=== PATIENT | male | born 1985 | race Caucasian/White ===

== ENCOUNTER 2016-10-06 22:31 | Emergency (ER) | payer BC, OTHER ==
[2016-10-06 22:57] VITALS: O2SAT 96
[2016-10-06] MEDS ORDERED: XYLOCAINE HCl Viscous MM PRN (23:12)
[2016-10-06] MEDS ORDERED: AMOXIL 500 MG PO ONE (23:12)
[2016-10-06] MEDS ORDERED: Marcaine 0.5%/Epinephrine 10 ML ONE (23:13)
[2016-10-06] MEDS ORDERED: XYLOCAINE HCl Viscous ONE (23:13)
[2016-10-06] MEDS ORDERED: Marcaine 0.5%/Epinephrine 10 ML IJ ONE (23:13)
[2016-10-06] MEDS ORDERED: AMOXIL 500 MG ONE (23:16)
--- NOTE | 2016-10-06 23:20 | ERPHSYRPT ---
- History of Present Illness Time Seen by Provider: 10/06/16 23:06 Source: patient Patient Subjective Stated Complaint: states that he was sitting at his computer tonight and began to have sharp shooting pain in his mouth - pain radiates to the latter day - states that he will see his dentist tomorrow Triage Nursing Assessment: ambulatory to [facility] area - steady gait - moves all extremities with equal strength. alert/oriented - grimmacing affect. skin pwd - no rash/injury. resps easy - non-labored. dental caries Physician History: CC: left upper toothache tonite hx: 31 y/o healthy patient with left upper toothache tonite that is severe. No other complaints. No fever. Pain too bad. He has a dentist in and hopes to be seen there tomorrow. Severity: severe ENT Location: dental Allergies/Adverse Reactions: No Known Drug Allergies Allergy (Unverified 10/06/16 23:08) Hx Tetanus, Diphtheria Vaccination/Date Given: Yes Hx Influenza Vaccination/Date Given: No Hx Pneumococcal Vaccination/Date Given: No Immunizations Up to Date: Yes - Review of Systems Constitutional: No Fever, No Chills Eyes: No Vision Changes, No Double Vision Ears, Nose, & Throat: Mouth Pain, No Throat Pain Respiratory: No Dyspnea Skin: No Rash - Past Medical History Pertinent Past Medical History: No - Past Surgical History Past Surgical History: No - Social History Smoking Status: Never smoker Exposure to second hand smoke: No Drug Use: none Patient Lives Alone: No ([employer] at [employer]) - Nursing Vital Signs Nursing Vital Signs: Initial Vital Signs Temperature 97.6 F Temperature Source Oral Pulse Rate 60 Respiratory Rate 18 Blood Pressure [Right Arm] 132/73 Pain Intensity 9 - Physical Exam General Appearance: alert Eye Exam: bilateral eye: PERRL, EOMI Nasal Exam: normal inspection Throat Exam: pharynx normal Neck Exam: non-tender, supple Cardiovascular/Respiratory Exam: normal breath sounds, regular rate/rhythm Neurologic Exam: alert, oriented x 3, cooperative Skin Exam: warm, dry, other (no facial cellulitis), No rash SpO2 Interpretation: normal SpO2: 96 Oxygen Delivery: Room Air Comments: tender left upper 3rd molar with cracked tooth. No trismus. No facial cellulitis. - Course Nursing assessment & vital signs reviewed: Yes Ordered Tests: Medication Summary Generic Name Dose Route Start Last Admin Trade Name Jeancarlos PRN Reason Stop Dose Admin Lidocaine HCl 2 ml 10/06/16 23:12 10/06/16 23:51 Xylocaine Hcl Viscous * MM 11/05/16 23:11 2 ml PRN PRN Administration gum injection Discontinued Medications Generic Name Dose Route Start Last Admin Trade Name Jeancarlos PRN Reason Stop Dose Admin Amoxicillin 500 mg 10/06/16 23:12 10/06/16 23:51 Amoxil 500 Mg PO 10/06/16 23:13 500 mg STAT ONE Administration Amoxicillin Confirm 10/06/16 23:16 Amoxil 500 Mg Administered 10/06/16 23:17 Dose 500 mg .ROUTE .STK-MED ONE Bupivacaine HCl/Epinephrine Bitart 5 ml 10/06/16 23:13 10/06/16 23:51 Marcaine 0.5%/Epinephrine 10 Ml IJ 10/06/16 23:14 5 ml STAT ONE Administration Bupivacaine HCl/Epinephrine Bitart Confirm 10/06/16 23:13 Marcaine 0.5%/Epinephrine 10 Ml Administered 10/06/16 23:14 Dose 10 ml .ROUTE .STK-MED ONE - Progress Progress Note: 10/06/16 23:19 Pt chose dental block injection trial. 10/06/16 23:23 2.5ml maracine 0.5% with epi used for left dental block. Pt tolerated well. 10/06/16 23:51 Pain significantly improved but not gone. Will give norco for home. Rx amoxil. Advised no driving or operating machinery while taking norco. Advised close dental followup. Counseled pt/family regarding: diagnosis, need for follow-up - Departure Time of Disposition: 23:52 Departure Disposition: Home Clinical Impression: Toothache Condition: Stable Critical Care Time: No Referrals: NELL SALGADO MD [Primary Care Provider] - Instructions: Dental Pain Additional Instructions: Rx amoxil. Rx norco- no driving or operating machinery. See dentist as soon as possible. Prescriptions: Hydrocodone Bit/Acetaminophen [[place] 5-325 Tablet] 1 each PO Q6H PRN PRN #15 tablet PRN Reason: Pain Amoxicillin [Amoxil] 1 cap PO TID #30 capsule
[2016-10-06] MEDS ORDERED: NORCO 5/325 MG PO ONE (23:53)
[2016-10-06] MEDS ORDERED: NORCO 5/325 MG ONE (23:55)
[2016-10-07 00:05] VITALS: BP 139/91; PULSE 90
== END 2016-10-07 00:05 | disposition home or self-care (01) ==
LOC: ED 22:31
DX: K08.89 Other specified disorders of teeth and supporting structures (principal)
CPT/HCPCS: 99284; A9270-GY